=== PATIENT | male | born 1955 | race Caucasian/White ===

== ENCOUNTER 2018-12-01 09:37 | Outpatient (CLI) | payer MEDICARE ==
--- NOTE | 2018-12-01 11:29 | ULT ---
BILATERAL CAROTID DUPLEX ULTRASOUND: DATE: 12/01/18 HISTORY: Bilateral carotid stenosis. TECHNIQUE: Masterson scale ultrasound with color flow and spectral Doppler imaging of the extracranial carotid artery systems performed bilaterally. FINDINGS: There is plaque formation on either side. The peak systolic velocity in the right ICA measures 89 cm/second with an end-diastolic velocity of 2 3 cm/second and a systolic ratio of 0.88. The peak systolic velocity in the left ICA measures 91 cm/second with an end-diastolic velocity of 27 cm/second and a systolic ratio of 0.79. Flow in both vertebral arteries remains antegrade. IMPRESSION: No evidence of hemodynamically significant stenosis. POS: OFF
== END 2018-12-01 09:38 | disposition home or self-care (01) ==
LOC: BICULT 09:37
PROVIDERS: ATTEND Family Medicine
DX: I65.23 Occlusion and stenosis of bilateral carotid arteries (principal)
CPT/HCPCS: 93880

== ENCOUNTER 2019-01-30 12:07 | Outpatient (CLI) | payer MEDICARE ==
[~2019-01-30 12:07] MED LIST: ISOVUE-370 76%-LOCM 1 ML ONE
--- NOTE | 2019-01-30 14:05 | CT ---
CT ANGIOGRAM NECK WITH CONTRAST: DATE: 01/30/2019 HISTORY: 63-year-old male with carotid atherosclerosis and stenosis TECHNIQUE: After IV contrast injection, arterial bolus chasing technique scan performed from AP window to sella turcica Coronal and sagittal 3-D MIP reconstructions. FINDINGS: Borderline origin of left common carotid artery from the innominate. Innominate: Caliber within normal limits Right subclavian: No stenosis. Left subclavian: No stenosis Right common carotid: No significant stenosis Left common carotid: No significant stenosis Right internal carotid: Multifocal calcified plaque at proximal ICA, including origin and carotid bul b up to a distance of 1.5 cm distal to the carotid bulb. Greatest degree of stenosis is estimated to be approximately 25%. Small focal plaque calcified in its cervical portion of R ICA which does not cause significant stenosis. Left internal carotid: Mild or calcified plaque at proximal left internal carotid, causing minimal st enosis. Bilateral vertebral: Codominant. No significant stenosis. Carotid siphons: Mild stenosis bilaterally due to calcified plaque. IMPRESSION: 1) atherosclerosis of bilateral proximal internal carotid arteries. 2) no evidence of hemodynamically significant stenosis.
== END 2019-01-30 12:08 | disposition home or self-care (01) ==
LOC: BICCT 12:07
PROVIDERS: ATTEND Family Medicine
DX: I65.23 Occlusion and stenosis of bilateral carotid arteries (principal)
CPT/HCPCS: 70498; 82565; Q9966

== ENCOUNTER 2020-11-29 12:57 | Inpatient (IN) | payer MEDICARE ==
[2020-11-29] MEDS ORDERED: Calcium Chloride 1 GM/10 ML Abboject SYRINGE ONE (13:12)
[2020-11-29] MEDS ORDERED: Calcium Gluc 4.6 MEQ/10 ML (100 MG/ML) ONE (13:14)
[2020-11-29 13:27] LABS: #Basophils 0.1 thou/uL (0.0-0.2); #Eosinphils 0.1 thou/uL (0.0-0.7); #Lymphocytes 2.3 thou/uL (1.20-3.40); #Monocytes 0.9 thou/uL (0.11-0.59); #Neutrophils 11.5 thou/uL (1.40-6.50); %Basophils 0.6 % (0.0-1.0); %Lymphocytes 15.3 % (21.0-51.0); %Monocytes 6.3 % (0.0-10.0); %Neutrophils 76.9 % (42.0-75.0); Hemoglobin 13.6 g/dL (14.0-18.0); Mean Corpuscular Hemoglobin 26.9 pg (27.0-31.0); Mean Corpuscular Volume 84.3 fL (78.0-98.0); Mean Platelet Volume 8.5 fL (7.4-10.4); Platelet Count 163 thou/uL (130-400); RBC Distribution Width 13.3 % (11.5-14.5); Red Blood Cell (RBC) Count 5.06 mill/uL (4.70-6.10); White Blood Cell (WBC) Count 14.9 thou/uL (4.8-10.8)
[2020-11-29 13:34] LABS: INR-International Normal Ratio 1.3; PTT 30.4 sec (22.9-36.1); Prothrombin Time 16.3 sec (12.0-14.7)
[2020-11-29] MEDS ORDERED: VANCOMYCIN 2 GRAM/400 ML BAG 2 GM in Premix Bag 1 BAG IVPB SCH (13:45)
[2020-11-29] MEDS ORDERED: Cefepime 2 GM in Sodium Chloride 0.9% 100 ML IVPB SCH (13:45)
[2020-11-29 13:51] LABS: Digoxin Less than 0.15 ng/mL (0.8-2.0)
[2020-11-29 13:55] LABS: ALT (SGPT) 23 U/L (8-55); AST (SGOT) 33 U/L (5-34); Albumin 4.5 g/dL (3.4-4.8); Alkaline Phosphatase 82 U/L (40-110); Anion Gap 23 mmol/L (10-20); BUN (Urea Nitrogen) 20 mg/dL (8.4-25.7); Bilirubin, Total 1.3 mg/dL (0.2-1.2); Calc. Creatinine Clearance 0 mL/min (70-130); Calcium 9.3 mg/dL (7.8-10.44); Carbon Dioxide 16 mmol/L (23-31); Chloride 98 mmol/L (98-107); Globulin 3.4 g/dL (2.4-3.5); Glucose 322 mg/dL (80-115); Potassium 5.6 mmol/L (3.5-5.1); Protein, Total 7.9 g/dL (5.8-8.1); Sodium 131 mmol/L (136-145)
[2020-11-29] MEDS ORDERED: Cefepime 2 GM VIAL ONE (14:02)
[2020-11-29 16:37] LABS: Bilirubin Negative (Negative); Blood, Urine Negative (Negative); Clarity Clear (Clear); Glucose, Urine (Dipstick) 150 mg/dL (Negative); Ketone, Urine Negative (Negative); Leukocyte Negative Leu/uL (Negative); Nitrite Negative (Negative); Protein, Urine (Dipstick) 20 mg/dL (Neg-Trace); Specific Gravity, Urine 1.016 (1.002-1.036); Urobilinogen Normal mg/dL (Less than 2); pH, Urine 5.5 (5.0-9.0)
[2020-11-29] MEDS ORDERED: Dexamethasone 4 mg/ml Vial ONE (17:07)
[2020-11-29 17:51] LABS: Bilirubin, Direct 0.5 mg/dL (0.1-0.3); Magnesium 1.7 mg/dL (1.6-2.6)
[2020-11-29] MEDS ORDERED: Dextrose 5% in Water 1,000 ML IV PRN (17:55)
[2020-11-29] MEDS ORDERED: Dextrose 50% Abboject 50 ML SYRINGE SLOW IVP PRN (17:55)
[2020-11-29] MEDS ORDERED: HumaLOG 300 UNITS/3 ML VIAL SC PRN ×2 (17:55)
[2020-11-29] MEDS ORDERED: Acetaminophen 325 MG TAB PO PRN (17:58)
[2020-11-29] MEDS ORDERED: Acetaminophen 650 MG Suppository PR PRN (17:58)
[2020-11-29] MEDS ORDERED: Magnesium 2 GM/50 ML 2 GM in Premix Bag 1 BAG IVPB SCH (18:45)
[2020-11-29] MEDS ORDERED: Meclizine HCl 12.5 MG TAB PO PRN (19:54)
[2020-11-29] MEDS: Famotidine/PF 20 mg/2ml Vial SLOW IVP SCH (20:21)
[2020-11-29] MEDS: Sodium Chloride 0.9% 1,000 ML IV SCH (20:22)
[2020-11-29 22:07] LABS: Hemoglobin 13.4 g/dL (14.0-18.0)
[2020-11-29 22:23] LABS: Lactic Acid 2.5 mmol/L (0.5-2.2)
[2020-11-29 22:30] LABS: Anion Gap 22 mmol/L (10-20); BUN (Urea Nitrogen) 28 mg/dL (8.4-25.7); Calc. Creatinine Clearance 0 mL/min (70-130); Calcium 9.2 mg/dL (7.8-10.44); Carbon Dioxide 12 mmol/L (23-31); Chloride 101 mmol/L (98-107); Glucose 359 mg/dL (80-115); Magnesium 2.6 mg/dL (1.6-2.6); Potassium 5.5 mmol/L (3.5-5.1); Sodium 129 mmol/L (136-145)
[2020-11-29] MEDS ORDERED: Sodium Chloride 0.9% 1,000 ML IV PRN ×4 (23:03)
[2020-11-29] MEDS ORDERED: Dextrose 5 %-0.45 % NaCl 1,000 ML IV PRN (23:03)
[2020-11-29] MEDS ORDERED: Electrolyte Replacement Protocol 1 EACH IVPB PRN (23:03)
[2020-11-29] MEDS ORDERED: NS 0.9% w/ 20 MEQ KCL 1,000 ML IV PRN ×2 (23:03)
[2020-11-30] MEDS: HUMULIN R 100 UNITS in Sodium Chloride 0.9% 100 ML IVPB SCH ×2 (00:50→08:19)
[2020-11-30 03:08] LABS: Actual Bicarbonate (HCO3a) 15.7 mEq/L (22-28); Base Excess (BEa) -7.5 mEq/L (-2.0 to +3.0); CO2 Tension 26.1 mmHg (35.0-45.0); Calcium, Ionized (arterial) 1.21 mmol/L (1.12-1.30); Carboxyhemoglobin (COHb) 0.3 gm% (0.0-3.0); Hemoglobin (Hb) 13.2 g/dL (14.0-18.0); O2 Tension (PaO2), arterial 87.6 mmHg (> 80.0); Potassium - ABG Lab 4.33 mmol/L (3.70-5.30)
[2020-11-30 03:14] LABS: ALV-art Gradient 29.505 mmHg (0-20); Puncture Site LBA
[2020-11-30] MEDS: Cefepime 2 GM in Sodium Chloride 0.9% 100 ML IVPB SCH ×2 (03:16→16:36)
[2020-11-30] MEDS: Vancomycin 1.5 GRAM/300 ML BAG 1.5 GM in Premix Bag 1 BAG IVPB SCH ×2 (03:17→14:00)
[2020-11-30] MEDS: Sodium Chloride 0.9% 1,000 ML IV SCH (03:47)
[2020-11-30 03:55] LABS: INR-International Normal Ratio 1.5; Prothrombin Time 18.7 sec (12.0-14.7)
[2020-11-30 04:07] LABS: Lactic Acid 2.8 mmol/L (0.5-2.2)
[2020-11-30 04:10] LABS: ALT (SGPT) 20 U/L (8-55); AST (SGOT) 17 U/L (5-34); Albumin 4.1 g/dL (3.4-4.8); Alkaline Phosphatase 74 U/L (40-110); Anion Gap 19 mmol/L (10-20); BUN (Urea Nitrogen) 27 mg/dL (8.4-25.7); Bilirubin, Total 0.8 mg/dL (0.2-1.2); Calc. Creatinine Clearance 66 mL/min (70-130); Carbon Dioxide 12 mmol/L (23-31); Cardiac Risk 4.3 (Less than 4.5); Chloride 104 mmol/L (98-107); Cholesterol 138 mg/dl (< 200 Desired); Globulin 3.2 g/dL (2.4-3.5); Glucose 305 mg/dL (80-115); HDL Cholesterol 32 mg/dL (>60 Neg Risk); LDL Cholesterol, Calculated 91 mg/dL; Magnesium 2.2 mg/dL (1.6-2.6); Potassium 4.6 mmol/L (3.5-5.1); Protein, Total 7.3 g/dL (5.8-8.1); Sodium 130 mmol/L (136-145); Triglycerides 73 mg/dL (Less than 150)
[2020-11-30 04:19] LABS: Anion Gap 19 mmol/L (10-20); BUN (Urea Nitrogen) 27 mg/dL (8.4-25.7); Calc. Creatinine Clearance 66 mL/min (70-130); Carbon Dioxide 12 mmol/L (23-31); Chloride 104 mmol/L (98-107); Glucose 298 mg/dL (80-115); Potassium 4.5 mmol/L (3.5-5.1); Sodium 130 mmol/L (136-145)
[2020-11-30 04:49] LABS: #Basophils 0.1 thou/uL (0.0-0.2); #Lymphocytes 1.2 thou/uL (1.20-3.40); #Monocytes 0.6 thou/uL (0.11-0.59); #Neutrophils 13.2 thou/uL (1.40-6.50); %Basophils 0.5 % (0.0-1.0); %Eosinophils 0.1 % (0.0-10.0); %Lymphocytes 8.1 % (21.0-51.0); %Monocytes 3.8 % (0.0-10.0); %Neutrophils 87.5 % (42.0-75.0); Hemoglobin 12.8 g/dL (14.0-18.0); MDiff Complete? YES; Mean Corpuscular HGB CONC 33.1 g/dL (32.0-36.0); Mean Corpuscular Hemoglobin 27.6 pg (27.0-31.0); Mean Corpuscular Volume 83.4 fL (78.0-98.0); Mean Platelet Volume 8.3 fL (7.4-10.4); Platelet Count 109 thou/uL (130-400); Platelet Morphology Comment Appears Decreased; RBC Distribution Width 13.4 % (11.5-14.5); Red Blood Cell (RBC) Count 4.64 mill/uL (4.70-6.10); White Blood Cell (WBC) Count 15.1 thou/uL (4.8-10.8)
[2020-11-30 05:22] VITALS: BMI 28.4
[2020-11-30 05:38] LABS: SARS-CoV-2 PCR by NAA Not Detected (NotDetected)
[2020-11-30] MEDS: D5 1/2 NS w/20 mEq KCL 1,000 ML IV PRN ×2 (06:23→10:31)
[2020-11-30] MEDS: Famotidine/PF 20 mg/2ml Vial SLOW IVP SCH ×2 (08:19→20:46)
[2020-11-30] MEDS: Ezetimibe 10 MG TAB PO SCH (08:19)
[2020-11-30 08:58] LABS: Anion Gap 17 mmol/L (10-20); BUN (Urea Nitrogen) 30 mg/dL (8.4-25.7); Calc. Creatinine Clearance 71 mL/min (70-130); Carbon Dioxide 13 mmol/L (23-31); Chloride 105 mmol/L (98-107); Glucose 178 mg/dL (80-115); Potassium 4.2 mmol/L (3.5-5.1); Sodium 131 mmol/L (136-145)
[2020-11-30] MEDS ORDERED: Aspirin 81 mg Enteric Coated Tablet PO SCH ×2 (10:25→11:00)
[2020-11-30] MEDS ORDERED: Dextrose 50% Abboject 50 ML SYRINGE SLOW IVP PRN (13:26)
[2020-11-30] MEDS ORDERED: Dextrose 5% in Water 1,000 ML IV PRN (13:26)
[2020-11-30] MEDS: Lactated Ringer's 1,000 ML IV SCH (13:59)
[2020-11-30] MEDS ORDERED: Insulin Glargine 25 UNITS in Pre-Filled Syringe 1 EACH SC SCH ×2 (14:00→21:00)
[2020-11-30] MEDS: Warfarin Sodium 7.5 MG TAB PO SCH (16:36)
[2020-11-30] MEDS: Atorvastatin Calcium 40 MG TAB PO SCH (20:45)
[2020-11-30] MEDS: Montelukast Sodium 10 mg Tablet PO SCH (20:45)
[2020-11-30] MEDS: HumaLOG 300 UNITS/3 ML VIAL SC PRN (20:51)
[2020-12-01 01:26] LABS: Hemoglobin 11.8 g/dL (14.0-18.0); Platelet Count 84 thou/uL (130-400)
[2020-12-01 01:31] LABS: INR-International Normal Ratio 2.1
[2020-12-01 01:43] LABS: Vancomycin, Trough 22.7 ug/mL
[2020-12-01] MEDS: VANCOMYCIN 1.25 GM/250 ML BAG 1.25 GM in Premix Bag 1 BAG IVPB SCH ×2 (02:21→17:46)
[2020-12-01 02:41] LABS: Anion Gap 17 mmol/L (10-20); BUN (Urea Nitrogen) 30 mg/dL (8.4-25.7); Calc. Creatinine Clearance 85 mL/min (70-130); Calcium 8.6 mg/dL (7.8-10.44); Carbon Dioxide 14 mmol/L (23-31); Chloride 105 mmol/L (98-107); Glucose 224 mg/dL (80-115); Potassium 4.7 mmol/L (3.5-5.1); Sodium 131 mmol/L (136-145)
[2020-12-01] MEDS: Cefepime 2 GM in Sodium Chloride 0.9% 100 ML IVPB SCH ×2 (05:45→15:50)
[2020-12-01] MEDS: HumaLOG 300 UNITS/3 ML VIAL SC PRN ×3 (05:46→21:33)
[2020-12-01 08:13] LABS: Hemoglobin 12.4 g/dL (14.0-18.0); Mean Corpuscular HGB CONC 32.6 g/dL (32.0-36.0); Mean Corpuscular Hemoglobin 27.6 pg (27.0-31.0); Mean Corpuscular Volume 84.6 fL (78.0-98.0); Mean Platelet Volume 8.8 fL (7.4-10.4); Platelet Count 80 thou/uL (130-400); RBC Distribution Width 13.6 % (11.5-14.5); Red Blood Cell (RBC) Count 4.47 mill/uL (4.70-6.10)
[2020-12-01] MEDS: Aspirin 81 mg Enteric Coated Tablet PO SCH (08:30)
[2020-12-01] MEDS: Ezetimibe 10 MG TAB PO SCH (08:30)
[2020-12-01] MEDS: Famotidine/PF 20 mg/2ml Vial SLOW IVP SCH ×2 (08:31→21:33)
[2020-12-01 08:43] LABS: #Eosinphils 0.2 thou/uL (0.0-0.7); #Lymphocytes 1.7 thou/uL (1.20-3.40); #Monocytes 1.1 thou/uL (0.11-0.59); %Basophils 0.1 % (0.0-1.0); %Eosinophils 1.1 % (0.0-10.0); %Lymphocytes 10.3 % (21.0-51.0); %Monocytes 6.9 % (0.0-10.0); %Neutrophils 81.5 % (42.0-75.0); Burr Cells SLIGHT = 2-5 cells (100X) (0-1/hpf); Elliptocytes SLIGHT = 2-5 cells (100X) (0-1/hpf); MDiff Complete? YES; Platelet Morphology Comment Appears Decreased; Poikilocytosis MODERATE=16-30 cells (100X) (0-5/hpf); Schistocytes SLIGHT = 2-5 cells (100X) (0-1/hpf)
[2020-12-01] MEDS ORDERED: Insulin Glargine 25 UNITS in Pre-Filled Syringe 1 EACH SC SCH (09:00)
[2020-12-01] MEDS: Lactated Ringer's 1,000 ML IV SCH ×2 (10:05→17:48)
[2020-12-01] MEDS: Warfarin Sodium 7.5 MG TAB PO SCH (17:48)
[2020-12-01] MEDS: HumaLOG 300 UNITS/3 ML VIAL SC SCH (17:54)
[2020-12-01] MEDS ORDERED: Non-Formulary Item 1 EACH (Insulin Glargine,Hum.Rec.Anlog [Basaglar Kwikpen U-100] 100 UN SQ SCH (21:00)
[2020-12-01] MEDS: Atorvastatin Calcium 40 MG TAB PO SCH (21:32)
[2020-12-01] MEDS: Montelukast Sodium 10 mg Tablet PO SCH (21:33)
[2020-12-01] MEDS: Insulin Glargine 50 UNITS in Pre-Filled Syringe 1 EACH SC SCH (21:34)
[2020-12-02] MEDS: Cefepime 2 GM in Sodium Chloride 0.9% 100 ML IVPB SCH ×2 (02:19→13:57)
[2020-12-02] MEDS: VANCOMYCIN 1.25 GM/250 ML BAG 1.25 GM in Premix Bag 1 BAG IVPB SCH ×2 (03:10→15:11)
[2020-12-02 06:50] LABS: INR-International Normal Ratio 2.1
[2020-12-02 07:03] LABS: Anion Gap 12 mmol/L (10-20); BUN (Urea Nitrogen) 22 mg/dL (8.4-25.7); Calc. Creatinine Clearance 120 mL/min (70-130); Calcium 8.2 mg/dL (7.8-10.44); Carbon Dioxide 20 mmol/L (23-31); Chloride 108 mmol/L (98-107); Glucose 115 mg/dL (80-115); Potassium 4.1 mmol/L (3.5-5.1); Sodium 136 mmol/L (136-145)
[2020-12-02] MEDS: HumaLOG 300 UNITS/3 ML VIAL SC SCH ×2 (09:21→16:19)
[2020-12-02] MEDS: Aspirin 81 mg Enteric Coated Tablet PO SCH (09:22)
[2020-12-02] MEDS: Lactated Ringer's 1,000 ML IV SCH ×2 (09:22→20:10)
[2020-12-02] MEDS: Ezetimibe 10 MG TAB PO SCH (09:22)
[2020-12-02] MEDS: Insulin Glargine 50 UNITS in Pre-Filled Syringe 1 EACH SC SCH ×2 (09:23→21:09)
[2020-12-02] MEDS: Famotidine/PF 20 mg/2ml Vial SLOW IVP SCH ×2 (09:32→20:10)
[2020-12-02 14:09] LABS: Vancomycin, Trough 21.9 ug/mL
[2020-12-02] MEDS ORDERED: Vancomycin 1 GM in Premix Bag 1 BAG IVPB SCH (15:00)
[2020-12-02] MEDS: Vancomycin 1 GM in Premix Bag 1 BAG IVPB SCH (16:21)
[2020-12-02] MEDS: Warfarin Sodium 7.5 MG TAB PO SCH (16:22)
[2020-12-02] MEDS: Montelukast Sodium 10 mg Tablet PO SCH (20:10)
[2020-12-02] MEDS: Atorvastatin Calcium 40 MG TAB PO SCH (20:10)
[2020-12-03] MEDS: Cefepime 2 GM in Sodium Chloride 0.9% 100 ML IVPB SCH ×2 (02:43→14:04)
[2020-12-03] MEDS: Vancomycin 1 GM in Premix Bag 1 BAG IVPB SCH ×2 (03:50→16:42)
[2020-12-03] MEDS: Senokot S 8.6-50 MG TAB PO PRN ×2 (03:51→20:14)
[2020-12-03 07:00] LABS: #Basophils 0.1 thou/uL (0.0-0.2); #Eosinphils 0.3 thou/uL (0.0-0.7); #Lymphocytes 1.6 thou/uL (1.20-3.40); #Monocytes 0.6 thou/uL (0.11-0.59); #Neutrophils 6.6 thou/uL (1.40-6.50); %Basophils 0.6 % (0.0-1.0); %Eosinophils 3.3 % (0.0-10.0); %Lymphocytes 17.1 % (21.0-51.0); Hemoglobin 11.4 g/dL (14.0-18.0); Mean Corpuscular HGB CONC 32.4 g/dL (32.0-36.0); Mean Corpuscular Hemoglobin 26.9 pg (27.0-31.0); Mean Corpuscular Volume 83.1 fL (78.0-98.0); Mean Platelet Volume 9.3 fL (7.4-10.4); Platelet Count 95 thou/uL (130-400); RBC Distribution Width 13.6 % (11.5-14.5); Red Blood Cell (RBC) Count 4.24 mill/uL (4.70-6.10); White Blood Cell (WBC) Count 9.2 thou/uL (4.8-10.8)
[2020-12-03 07:29] LABS: ALT (SGPT) 27 U/L (8-55); AST (SGOT) 31 U/L (5-34); Albumin 3.6 g/dL (3.4-4.8); Alkaline Phosphatase 68 U/L (40-110); Anion Gap 15 mmol/L (10-20); BUN (Urea Nitrogen) 15 mg/dL (8.4-25.7); Calc. Creatinine Clearance 112 mL/min (70-130); Calcium 8.4 mg/dL (7.8-10.44); Carbon Dioxide 20 mmol/L (23-31); Chloride 107 mmol/L (98-107); Globulin 2.7 g/dL (2.4-3.5); Glucose 93 mg/dL (80-115); Magnesium 1.8 mg/dL (1.6-2.6); Protein, Total 6.3 g/dL (5.8-8.1); Sodium 138 mmol/L (136-145)
[2020-12-03] MEDS ORDERED: Magnesium 2 GM/50 ML 2 GM in Premix Bag 1 BAG IVPB SCH (08:30)
[2020-12-03] MEDS: HumaLOG 300 UNITS/3 ML VIAL SC SCH ×2 (09:40→16:44)
[2020-12-03] MEDS: Aspirin 81 mg Enteric Coated Tablet PO SCH (09:42)
[2020-12-03] MEDS: Ezetimibe 10 MG TAB PO SCH (09:42)
[2020-12-03] MEDS: Famotidine/PF 20 mg/2ml Vial SLOW IVP SCH ×2 (09:42→20:13)
[2020-12-03] MEDS: Insulin Glargine 50 UNITS in Pre-Filled Syringe 1 EACH SC SCH (09:42)
[2020-12-03 11:05] LABS: ANA Symphony (Qualitative) Negative (Negative); ANA Symphony (Quantitative) 0.2 Ratio (< 0.7 Negative); CCP IgG Antibody 0.7 EliAU/mL (<7 Negative); EliA RAS New Method **** NEW METHOD ****; Rheumatoid Factor IgA Antibody 4.8 IU/mL (<14 Negative); Rheumatoid Factor IgM Antibody Less than 0.5 IU/mL (<3.5 Negative); dsDNA IgG Antibody 0.7 IU/mL (<10 Negative)
[2020-12-03 11:55] LABS: Hemoglobin A1c 8.2 % (4.0-6.0)
[2020-12-03 13:27] LABS: INR-International Normal Ratio 1.9; Prothrombin Time 22.6 sec (12.0-14.7)
[2020-12-03] MEDS: Lactated Ringer's 1,000 ML IV SCH ×2 (13:57→14:06)
[2020-12-03] MEDS: Warfarin Sodium 7.5 MG TAB PO SCH (16:42)
[2020-12-03] MEDS: Montelukast Sodium 10 mg Tablet PO SCH (20:13)
[2020-12-03] MEDS: Atorvastatin Calcium 40 MG TAB PO SCH (20:13)
[2020-12-03] MEDS: Lantus 1000 UNITS/10 ML VIAL SC SCH (21:39)
[2020-12-04 03:27] LABS: #Eosinphils 0.4 thou/uL (0.0-0.7); #Lymphocytes 1.6 thou/uL (1.20-3.40); #Monocytes 0.8 thou/uL (0.11-0.59); #Neutrophils 6.4 thou/uL (1.40-6.50); %Basophils 0.4 % (0.0-1.0); %Eosinophils 4.4 % (0.0-10.0); %Monocytes 8.9 % (0.0-10.0); %Neutrophils 69.4 % (42.0-75.0); Mean Corpuscular HGB CONC 33.2 g/dL (32.0-36.0); Mean Corpuscular Hemoglobin 27.5 pg (27.0-31.0); Mean Corpuscular Volume 82.7 fL (78.0-98.0); Mean Platelet Volume 9.1 fL (7.4-10.4); Platelet Count 109 thou/uL (130-400); RBC Distribution Width 13.4 % (11.5-14.5); Red Blood Cell (RBC) Count 3.99 mill/uL (4.70-6.10); White Blood Cell (WBC) Count 9.3 thou/uL (4.8-10.8)
[2020-12-04] MEDS: Cefepime 2 GM in Sodium Chloride 0.9% 100 ML IVPB SCH ×2 (03:27→14:35)
[2020-12-04 03:28] LABS: INR-International Normal Ratio 1.9
[2020-12-04 03:32] LABS: Vancomycin, Trough 15.9 ug/mL
[2020-12-04 03:35] LABS: ALT (SGPT) 28 U/L (8-55); AST (SGOT) 28 U/L (5-34); Albumin 3.4 g/dL (3.4-4.8); Alkaline Phosphatase 66 U/L (40-110); Anion Gap 12 mmol/L (10-20); BUN (Urea Nitrogen) 13 mg/dL (8.4-25.7); Bilirubin, Total 0.9 mg/dL (0.2-1.2); Calc. Creatinine Clearance 123 mL/min (70-130); Calcium 8.4 mg/dL (7.8-10.44); Carbon Dioxide 23 mmol/L (23-31); Chloride 106 mmol/L (98-107); Globulin 2.5 g/dL (2.4-3.5); Glucose 69 mg/dL (80-115); Magnesium 1.9 mg/dL (1.6-2.6); Potassium 3.9 mmol/L (3.5-5.1); Protein, Total 5.9 g/dL (5.8-8.1); Sodium 137 mmol/L (136-145)
[2020-12-04] MEDS: Lactated Ringer's 1,000 ML IV SCH ×2 (04:40→17:23)
[2020-12-04] MEDS: Vancomycin 1 GM in Premix Bag 1 BAG IVPB SCH ×2 (04:40→14:35)
[2020-12-04] MEDS ORDERED: Magnesium 2 GM/50 ML 2 GM in Premix Bag 1 BAG IVPB SCH (06:15)
[2020-12-04] MEDS: HumaLOG 300 UNITS/3 ML VIAL SC SCH ×2 (08:11→17:16)
[2020-12-04] MEDS: Ezetimibe 10 MG TAB PO SCH (08:12)
[2020-12-04] MEDS: Famotidine/PF 20 mg/2ml Vial SLOW IVP SCH ×2 (08:12→21:09)
[2020-12-04] MEDS: Lantus 1000 UNITS/10 ML VIAL SC SCH ×2 (08:12→21:08)
[2020-12-04] MEDS: Aspirin 81 mg Enteric Coated Tablet PO SCH (08:12)
[2020-12-04] MEDS: HumaLOG 300 UNITS/3 ML VIAL SC PRN ×2 (12:00→17:16)
[2020-12-04] MEDS: Warfarin Sodium 7.5 MG TAB PO SCH (17:15)
[2020-12-04] MEDS: Montelukast Sodium 10 mg Tablet PO SCH (21:09)
[2020-12-04] MEDS: Atorvastatin Calcium 40 MG TAB PO SCH (21:09)
[2020-12-05] MEDS: Lactated Ringer's 1,000 ML IV SCH (02:42)
[2020-12-05 07:02] LABS: Hemoglobin 11.2 g/dL (14.0-18.0); Platelet Count 141 thou/uL (130-400)
[2020-12-05 07:04] LABS: INR-International Normal Ratio 1.9; Prothrombin Time 22.6 sec (12.0-14.7)
[2020-12-05 07:19] LABS: Anion Gap 10 mmol/L (10-20); BUN (Urea Nitrogen) 12 mg/dL (8.4-25.7); Calc. Creatinine Clearance 119 mL/min (70-130); Calcium 8.5 mg/dL (7.8-10.44); Carbon Dioxide 29 mmol/L (23-31); Chloride 104 mmol/L (98-107); Glucose 113 mg/dL (80-115); Potassium 4.5 mmol/L (3.5-5.1); Sodium 138 mmol/L (136-145)
[2020-12-05] MEDS: HumaLOG 300 UNITS/3 ML VIAL SC SCH ×2 (07:46→17:26)
[2020-12-05] MEDS: Lantus 1000 UNITS/10 ML VIAL SC SCH ×2 (09:17→20:46)
[2020-12-05] MEDS: Famotidine/PF 20 mg/2ml Vial SLOW IVP SCH ×2 (09:17→20:46)
[2020-12-05] MEDS: Ezetimibe 10 MG TAB PO SCH (09:17)
[2020-12-05] MEDS: Aspirin 81 mg Enteric Coated Tablet PO SCH (09:17)
[2020-12-05] MEDS: HumaLOG 300 UNITS/3 ML VIAL SC PRN ×2 (12:28→17:26)
[2020-12-05] MEDS: Warfarin Sodium 7.5 MG TAB PO SCH (17:26)
[2020-12-05] MEDS: Atorvastatin Calcium 40 MG TAB PO SCH (20:44)
[2020-12-05] MEDS: Montelukast Sodium 10 mg Tablet PO SCH (20:45)
[2020-12-06] MEDS: Lactated Ringer's 1,000 ML IV SCH ×2 (01:10→13:16)
[2020-12-06 05:58] LABS: INR-International Normal Ratio 1.9; Prothrombin Time 22.1 sec (12.0-14.7)
[2020-12-06 06:10] LABS: Anion Gap 11 mmol/L (10-20); BUN (Urea Nitrogen) 15 mg/dL (8.4-25.7); Calc. Creatinine Clearance 117 mL/min (70-130); Calcium 8.6 mg/dL (7.8-10.44); Carbon Dioxide 27 mmol/L (23-31); Chloride 103 mmol/L (98-107); Glucose 77 mg/dL (80-115); Potassium 4.1 mmol/L (3.5-5.1); Sodium 137 mmol/L (136-145)
[2020-12-06] MEDS: Famotidine/PF 20 mg/2ml Vial SLOW IVP SCH ×2 (08:15→22:00)
[2020-12-06] MEDS: Aspirin 81 mg Enteric Coated Tablet PO SCH (08:15)
[2020-12-06] MEDS: Ezetimibe 10 MG TAB PO SCH (08:15)
[2020-12-06] MEDS: Lantus 1000 UNITS/10 ML VIAL SC SCH ×2 (08:25→22:02)
[2020-12-06] MEDS: HumaLOG 300 UNITS/3 ML VIAL SC SCH ×2 (08:28→18:39)
[2020-12-06] MEDS: HumaLOG 300 UNITS/3 ML VIAL SC PRN ×2 (13:03→17:24)
[2020-12-06] MEDS: Warfarin Sodium 7.5 MG TAB PO SCH (17:18)
[2020-12-06] MEDS: Montelukast Sodium 10 mg Tablet PO SCH (22:00)
[2020-12-06] MEDS: Atorvastatin Calcium 40 MG TAB PO SCH (22:00)
[2020-12-07 06:39] LABS: Hemoglobin 10.8 g/dL (14.0-18.0); Platelet Count 175 thou/uL (130-400)
[2020-12-07 06:44] LABS: Prothrombin Time 22.8 sec (12.0-14.7)
[2020-12-07 07:00] LABS: Anion Gap 14 mmol/L (10-20); BUN (Urea Nitrogen) 14 mg/dL (8.4-25.7); Calc. Creatinine Clearance 112 mL/min (70-130); Calcium 8.2 mg/dL (7.8-10.44); Carbon Dioxide 24 mmol/L (23-31); Chloride 101 mmol/L (98-107); Glucose 166 mg/dL (80-115); Sodium 135 mmol/L (136-145)
[2020-12-07] MEDS: HumaLOG 300 UNITS/3 ML VIAL SC SCH (08:03)
[2020-12-07] MEDS: Ezetimibe 10 MG TAB PO SCH (08:04)
[2020-12-07] MEDS: Aspirin 81 mg Enteric Coated Tablet PO SCH (08:04)
[2020-12-07] MEDS: Famotidine/PF 20 mg/2ml Vial SLOW IVP SCH (08:04)
[2020-12-07] MEDS: Lantus 1000 UNITS/10 ML VIAL SC SCH (08:05)
[2020-12-07] MEDS: HumaLOG 300 UNITS/3 ML VIAL SC PRN (11:29)
[2020-12-07 14:12] VITALS: BP 152/92; TEMP 98.8
== END 2020-12-07 15:11 | disposition home or self-care (01) | DRG 638 ==
LOC: ERS 12:57 → 2NO 17:30 → IMCU/EMU 11-30 00:14 → T4-B 12-01 14:22
PROVIDERS: ADMIT Family Medicine; ATTEND Family Medicine
DX: E11.10 Type 2 diabetes mellitus with ketoacidosis without coma (principal); N17.9 Acute kidney failure, unspecified; H81.10 Benign paroxysmal vertigo, unspecified ear; E86.9 Volume depletion, unspecified; E87.5 Hyperkalemia; G89.29 Other chronic pain; M54.9 Dorsalgia, unspecified; Z20.822 Contact with and (suspected) exposure to COVID-19; E86.0 Dehydration; N40.0 Benign prostatic hyperplasia without lower urinary tract symptoms; M25.552 Pain in left hip; M25.551 Pain in right hip; I25.2 Old myocardial infarction; Z86.73 Personal history of transient ischemic attack (TIA), and cerebral infarction without residual deficits; Z86.711 Personal history of pulmonary embolism; Z86.718 Personal history of other venous thrombosis and embolism; Z79.01 Long term (current) use of anticoagulants; Z95.828 Presence of other vascular implants and grafts; Z88.0 Allergy status to penicillin; Z88.8 Allergy status to other drugs, medicaments and biological substances; Z91.040 Latex allergy status; Z79.899 Other long term (current) drug therapy; Z79.84 Long term (current) use of oral hypoglycemic drugs
CPT/HCPCS: 36415; 36416; 36600; 51701; 70450; 70496; 70498; 70551; 71045; 71275; 72072; 72100; 72148; 72170; 74177; 80048; 80053; 80061; 80162; 80202; 81003; 82010; 82248; 82550; 82805; 83036; 83520; 83605; 83690; 83735; 83880; 84145; 84443; 84484; 85014; 85018; 85025; 85049; 85610; 85652; 85730; 86038; 86200; 86225; 87040; 87635; 93005; 93306; 96365; 96366; 96375; J0692; J1100; J1815; J2001; J3370; J3475; J3480; J3490; S0028; U0003; U0005

== ENCOUNTER 2023-04-14 16:03 | Emergency (ER) | payer MEDICARE ==
[2023-04-14] MEDS ORDERED: Dicyclomine 20 MG/2 ML VIAL ONE (18:22)
[2023-04-14 18:35] LABS: #Basophils 0.1 thou/uL (0.0-0.2); #Eosinphils 0.1 thou/uL (0.0-0.7); #Monocytes 0.7 thou/uL (0.11-0.59); %Basophils 0.4 % (0.0-1.0); %Eosinophils 0.9 % (0.0-10.0); %Lymphocytes 11.8 % (21.0-51.0); %Monocytes 5.8 % (0.0-10.0); %Neutrophils 80.7 % (42.0-75.0); Hematocrit 38.3 % (42.0-52.0); Hemoglobin 12.5 g/dL (14.0-18.0); Mean Corpuscular HGB CONC 32.6 g/dL (32.0-36.0); Mean Corpuscular Hemoglobin 27.2 pg (27.0-31.0); Mean Corpuscular Volume 83.4 fl (78.0-98.0); Platelet Count 257 10x3/uL (130-400); RBC Distribution Width 14.3 % (11.5-14.5); Red Blood Cell (RBC) Count 4.59 mill/uL (4.70-6.10); White Blood Cell (WBC) Count 11.1 10x3/uL (4.8-10.8)
[2023-04-14 18:57] LABS: ALT (SGPT) 11 U/L (8-55); AST (SGOT) 20 U/L (5-34); Alkaline Phosphatase 54 U/L (40-110); Anion Gap 14 mmol/L (10-20); BUN (Urea Nitrogen) 24 mg/dL (8.4-25.7); Bilirubin, Total 0.5 mg/dL (0.2-1.2); Calc. Creatinine Clearance 0 mL/min (70-130); Calcium 9.4 mg/dL (7.8-10.44); Carbon Dioxide 22 mmol/L (23-31); Chloride 100 mmol/L (98-107); Estimated GFR 76; Globulin 2.6 g/dL (2.4-3.5); Glucose 58 mg/dL (80-115); Lipase 11 U/L (8-78); Potassium 3.6 mmol/L (3.5-5.1); Protein, Total 6.6 g/dL (5.8-8.1); Sodium 132 mmol/L (136-145)
[2023-04-14] MEDS ORDERED: Glycerin Adult Supp. (12 ct jar) RC SCH (19:00)
[2023-04-14] MEDS ORDERED: Glycerin Adult Supp. (24 ct jar) RC SCH (19:00)
[2023-04-14] MEDS ORDERED: Midazolam HCl 2 mg/2 ml Vial ONE (19:22)
[2023-04-14 19:42] LABS: Bacteria/HPF None Seen HPF (None Seen); Bilirubin Negative (Negative); Blood, Urine Negative (Negative); CAUTI Indications for Culture Pelvic or flank pain; Clarity Clear (Clear); Glucose, Urine (Dipstick) Normal (Negative); Ketone, Urine Negative (Negative); Leukocyte Negative Leu/uL (Negative); Nitrite Negative (Negative); Protein, Urine (Dipstick) Negative (Neg-Trace); RBC/HPF 0-3 HPF (0-3); Specific Gravity, Urine 1.011 (1.002-1.036); Squamous Epithelial None Seen HPF (0-3); Urobilinogen Normal mg/dL (Less than 2); WBC/HPF 0-3 HPF (0-3)
[2023-04-14 19:46] LABS: Urine Culture Reflex No No
== END 2023-04-14 21:05 | disposition home or self-care (01) ==
LOC: ERS 16:03
DX: K59.00 Constipation, unspecified (principal); R33.9 Retention of urine, unspecified; E11.9 Type 2 diabetes mellitus without complications; E78.5 Hyperlipidemia, unspecified; Z79.4 Long term (current) use of insulin
CPT/HCPCS: 36415; 36416; 51702; 74177; 80053; 81001; 83690; 85025; 96361; 96372; 96374; J2250

== ENCOUNTER 2023-08-31 11:54 | Inpatient (IN) | payer MEDICARE ==
[2023-08-31 13:14] LABS: #Basophils 0.1 thou/uL (0.0-0.2); #Eosinphils 0.1 thou/uL (0.0-0.7); #Monocytes 0.8 thou/uL (0.11-0.59); #Neutrophils 6.8 thou/uL (1.40-6.50); %Basophils 0.5 % (0.0-1.0); %Eosinophils 1.3 % (0.0-10.0); %Monocytes 8.5 % (0.0-10.0); %Neutrophils 72.3 % (42.0-75.0); Hematocrit 36.9 % (42.0-52.0); Hemoglobin 12.4 g/dL (14.0-18.0); Mean Corpuscular HGB CONC 33.6 g/dL (32.0-36.0); Mean Corpuscular Hemoglobin 27.4 pg (27.0-31.0); Mean Corpuscular Volume 81.6 fl (78.0-98.0); Mean Platelet Volume 10.1 fL (7.4-10.4); Platelet Count 264 10x3/uL (130-400); RBC Distribution Width 14.7 % (11.5-14.5); Red Blood Cell (RBC) Count 4.52 mill/uL (4.70-6.10); White Blood Cell (WBC) Count 9.4 10x3/uL (4.8-10.8)
[2023-08-31] MEDS ORDERED: Morphine 4 MG/ML VIAL ONE (13:25)
[2023-08-31] MEDS ORDERED: Acetaminophen 500 MG TAB ONE (13:25)
[2023-08-31 13:32] LABS: ALT (SGPT) Less than 7 U/L (8-55); AST (SGOT) 31 U/L (5-34); Albumin 4.2 g/dL (3.4-4.8); Alkaline Phosphatase 65 U/L (40-110); Anion Gap 17 mmol/L (10-20); BUN (Urea Nitrogen) 28 mg/dL (8.4-25.7); Bilirubin, Total 0.8 mg/dL (0.2-1.2); Calc. Creatinine Clearance 0 mL/min (70-130); Calcium 9.8 mg/dL (7.8-10.44); Carbon Dioxide 20 mmol/L (23-31); Chloride 103 mmol/L (98-107); Estimated GFR 68; Globulin 3.1 g/dL (2.4-3.5); Potassium 3.7 mmol/L (3.5-5.1); Protein, Total 7.3 g/dL (5.8-8.1); Sodium 136 mmol/L (136-145)
[2023-08-31 13:36] LABS: Glucose 49 mg/dL (80-115)
[2023-08-31 16:51] LABS: Bacteria/HPF None Seen HPF (None Seen); Bilirubin Negative (Negative); Blood, Urine Negative (Negative); CAUTI Indications for Culture Pelvic or flank pain; Clarity Clear (Clear); Glucose, Urine (Dipstick) Normal (Negative); Ketone, Urine Negative (Negative); Leukocyte Negative Leu/uL (Negative); Nitrite Negative (Negative); Protein, Urine (Dipstick) Negative (Neg-Trace); RBC/HPF 0-3 HPF (0-3); Specific Gravity, Urine 1.007 (1.002-1.036); Squamous Epithelial None Seen HPF (0-3); Urobilinogen Normal mg/dL (Less than 2); WBC/HPF 0-3 HPF (0-3); pH, Urine 6.5 (5.0-9.0)
[2023-08-31] MEDS ORDERED: Ketorolac Tromethamine 30 MG/ML VIAL ONE (16:51)
[2023-08-31 16:55] LABS: Urine Culture Reflex No No
[2023-08-31] MEDS ORDERED: Methocarbamol 500 MG TAB PO SCH (17:00)
[2023-08-31] MEDS ORDERED: Dextrose 5% in Water 1,000 ML IV PRN (18:39)
[2023-08-31] MEDS ORDERED: Ondansetron ODT 4 MG TAB PO PRN (18:39)
[2023-08-31] MEDS ORDERED: Dextrose 50% Abboject 50 ML SYRINGE SLOW IVP PRN (18:39)
[2023-08-31] MEDS ORDERED: Acetaminophen 650 MG Suppository PR PRN (18:39)
[2023-08-31] MEDS ORDERED: Ondansetron PF 4 MG/2 ML Vial IVP PRN (18:39)
[2023-08-31] MEDS ORDERED: HumaLOG 300 UNITS/3 ML VIAL SC PRN ×2 (18:39)
[2023-08-31] MEDS ORDERED: Glucagon 1 MG/ML KIT IM PRN (18:39)
[2023-08-31] MEDS ORDERED: Morphine 2 MG/ML VIAL SLOW IVP PRN (18:42)
[2023-08-31] MEDS ORDERED: Electrolyte Replacement Protocol 1 EACH FS SCH (18:45)
[2023-08-31 19:40] VITALS: BMI 24.3
[2023-08-31] MEDS: Sodium Chloride 0.9% 1,000 ML IV SCH (21:24)
[2023-09-01 06:07] LABS: #Eosinphils 0.2 thou/uL (0.0-0.7); #Monocytes 0.7 thou/uL (0.11-0.59); #Neutrophils 5.6 thou/uL (1.40-6.50); %Basophils 0.5 % (0.0-1.0); %Eosinophils 2.5 % (0.0-10.0); %Lymphocytes 16.8 % (21.0-51.0); %Monocytes 8.9 % (0.0-10.0); Hematocrit 35.2 % (42.0-52.0); Hemoglobin 11.4 g/dL (14.0-18.0); Mean Corpuscular HGB CONC 32.4 g/dL (32.0-36.0); Mean Corpuscular Hemoglobin 26.7 pg (27.0-31.0); Mean Corpuscular Volume 82.4 fl (78.0-98.0); Platelet Count 244 10x3/uL (130-400); RBC Distribution Width 14.8 % (11.5-14.5); Red Blood Cell (RBC) Count 4.27 mill/uL (4.70-6.10); White Blood Cell (WBC) Count 7.9 10x3/uL (4.8-10.8)
[2023-09-01] MEDS: HYDROcodone/Acetaminophen 5/325 mg Tablet PO PRN ×4 (06:12→23:42)
[2023-09-01 06:36] LABS: Anion Gap 17 mmol/L (10-20); BUN (Urea Nitrogen) 20 mg/dL (8.4-25.7); Calc. Creatinine Clearance 83 mL/min (70-130); Calcium 8.7 mg/dL (7.8-10.44); Carbon Dioxide 19 mmol/L (23-31); Chloride 106 mmol/L (98-107); Estimated GFR 85; Glucose 60 mg/dL (80-115); Potassium 3.8 mmol/L (3.5-5.1); Sodium 138 mmol/L (136-145)
[2023-09-01] MEDS ORDERED: Amantadine HCl 100 mg Capsule FS SCH (09:00)
[2023-09-01] MEDS ORDERED: UBIDECARENONE 50 MG PO SCH (09:00)
[2023-09-01] MEDS ORDERED: Non-Formulary Item 1 EACH (Amantadine Hcl [Amantadine] 100 MG Tablet) PO SCH (09:00)
[2023-09-01] MEDS ORDERED: Non-Formulary Item 1 EACH (Rivaroxaban [Xarelto] 20 MG Tablet) PO SCH (09:00)
[2023-09-01] MEDS ORDERED: Non-Formulary Item 1 EACH (Atorvastatin Calcium [Lipitor] 80 MG Tablet) PO SCH (09:00)
[2023-09-01] MEDS ORDERED: Carbidopa/Levodopa 25-100 mg Tablet PO SCH (09:00)
[2023-09-01] MEDS ORDERED: Cholecalciferol 1,000 UNITS (25 MCG) TAB PO SCH (09:00)
[2023-09-01] MEDS ORDERED: Non-Formulary Item 1 EACH (Cyanocobalamin (Vitamin B-12) [Vitamin B-12] 1,000 MCG Capsule PO SCH (09:00)
[2023-09-01] MEDS ORDERED: Amantadine HCl 100 mg Capsule PO SCH (09:30)
[2023-09-01] MEDS: Ascorbic Acid 500 mg Chewable Tablet PO SCH (09:38)
[2023-09-01] MEDS: Gabapentin 300 MG CAP PO SCH ×3 (09:38→20:19)
[2023-09-01] MEDS: CO Q-10 CAPSULE 100 MG PO SCH (09:38)
[2023-09-01] MEDS: Cholecalciferol 1,000 UNITS (25 MCG) TAB PO SCH (09:38)
[2023-09-01] MEDS: Aspirin 81 mg Enteric Coated Tablet PO SCH (09:38)
[2023-09-01] MEDS: Rivaroxaban 10 MG TAB PO SCH (09:38)
[2023-09-01] MEDS: Carbidopa/Levodopa 25-100 mg Tablet PO SCH ×3 (09:39→20:19)
[2023-09-01] MEDS: Cyanocobalamin (Vitamin B-12) 1,000 MCG TAB PO SCH (09:39)
[2023-09-01] MEDS: Sodium Chloride 0.9% 1,000 ML IV SCH (10:06)
[2023-09-01] MEDS: Atorvastatin Calcium 40 MG TAB PO SCH (20:18)
[2023-09-01] MEDS: Mirtazapine 15 MG TAB PO SCH (20:18)
[2023-09-01] MEDS ORDERED: Non-Formulary Item 1 EACH (Mirtazapine [Mirtazapine] 7.5 MG Tablet) PO SCH (21:00)
[2023-09-02 05:56] LABS: Hemoglobin A1c 7.8 % (4.0-6.0)
[2023-09-02 06:16] LABS: Anion Gap 14 mmol/L (10-20); BUN (Urea Nitrogen) 16 mg/dL (8.4-25.7); Calc. Creatinine Clearance 88 mL/min (70-130); Carbon Dioxide 19 mmol/L (23-31); Chloride 107 mmol/L (98-107); Estimated GFR 91; Glucose 165 mg/dL (80-115); Potassium 3.7 mmol/L (3.5-5.1); Sodium 136 mmol/L (136-145)
[2023-09-02] MEDS: Rivaroxaban 10 MG TAB PO SCH (08:46)
[2023-09-02] MEDS: CO Q-10 CAPSULE 100 MG PO SCH (08:46)
[2023-09-02] MEDS: Gabapentin 300 MG CAP PO SCH ×3 (08:46→21:27)
[2023-09-02] MEDS: Aspirin 81 mg Enteric Coated Tablet PO SCH (08:46)
[2023-09-02] MEDS: Cholecalciferol 1,000 UNITS (25 MCG) TAB PO SCH (08:46)
[2023-09-02] MEDS: Carbidopa/Levodopa 25-100 mg Tablet PO SCH ×3 (08:46→21:27)
[2023-09-02] MEDS: Amantadine HCl 100 mg Capsule PO SCH (08:46)
[2023-09-02] MEDS: Cyanocobalamin (Vitamin B-12) 1,000 MCG TAB PO SCH (08:47)
[2023-09-02] MEDS: Ascorbic Acid 500 mg Chewable Tablet PO SCH (08:47)
[2023-09-02] MEDS: HYDROcodone/Acetaminophen 5/325 mg Tablet PO PRN ×2 (08:49→14:39)
[2023-09-02] MEDS ORDERED: Amantadine HCl 100 mg Capsule PO SCH (09:00)
[2023-09-02] MEDS ORDERED: Preparation H Ointment 57 gram tube TOP PRN (10:21)
[2023-09-02] MEDS ORDERED: Dextrose 5% in Water 1,000 ML IV PRN (16:28)
[2023-09-02] MEDS ORDERED: Glucagon 1 MG/ML KIT IM PRN (16:28)
[2023-09-02] MEDS ORDERED: Dextrose 50% Abboject 50 ML SYRINGE SLOW IVP PRN (16:28)
[2023-09-02] MEDS: HumaLOG 300 UNITS/3 ML VIAL SC PRN ×2 (17:44→23:22)
[2023-09-02] MEDS: Mirtazapine 15 MG TAB PO SCH (21:27)
[2023-09-02] MEDS: Atorvastatin Calcium 40 MG TAB PO SCH (21:27)
[2023-09-02] MEDS: Acetaminophen 325 MG TAB PO PRN (23:22)
[2023-09-03] MEDS: Cyanocobalamin (Vitamin B-12) 1,000 MCG TAB PO SCH (08:12)
[2023-09-03] MEDS: Gabapentin 300 MG CAP PO SCH ×3 (08:12→20:56)
[2023-09-03] MEDS: CO Q-10 CAPSULE 100 MG PO SCH (08:12)
[2023-09-03] MEDS: Ascorbic Acid 500 mg Chewable Tablet PO SCH (08:12)
[2023-09-03] MEDS: Carbidopa/Levodopa 25-100 mg Tablet PO SCH ×3 (08:13→20:56)
[2023-09-03] MEDS: Cholecalciferol 1,000 UNITS (25 MCG) TAB PO SCH (08:13)
[2023-09-03] MEDS: Amantadine HCl 100 mg Capsule PO SCH (08:13)
[2023-09-03] MEDS: Rivaroxaban 10 MG TAB PO SCH (08:14)
[2023-09-03] MEDS: Aspirin 81 mg Enteric Coated Tablet PO SCH (08:14)
[2023-09-03] MEDS: Acetaminophen 325 MG TAB PO PRN ×2 (08:18→16:12)
[2023-09-03] MEDS ORDERED: FLU VACC QS2023(65UP)/MF59C/PF 60 MCG/0.5 ML SYRINGE IM ONE (09:00)
[2023-09-03] MEDS: HumaLOG 300 UNITS/3 ML VIAL SC PRN ×2 (12:07→17:44)
[2023-09-03] MEDS: Mirtazapine 15 MG TAB PO SCH (20:56)
[2023-09-03] MEDS: Atorvastatin Calcium 40 MG TAB PO SCH (20:56)
[2023-09-04 06:40] LABS: Hematocrit 36.9 % (42.0-52.0); Hemoglobin 11.8 g/dL (14.0-18.0); Mean Corpuscular Hemoglobin 26.7 pg (27.0-31.0); Mean Corpuscular Volume 83.5 fl (78.0-98.0); Mean Platelet Volume 9.4 fL (7.4-10.4); Platelet Count 276 10x3/uL (130-400); RBC Distribution Width 14.4 % (11.5-14.5); Red Blood Cell (RBC) Count 4.42 mill/uL (4.70-6.10); White Blood Cell (WBC) Count 6.8 10x3/uL (4.8-10.8)
[2023-09-04] MEDS: Amantadine HCl 100 mg Capsule PO SCH (07:48)
[2023-09-04] MEDS: Acetaminophen 325 MG TAB PO PRN (07:48)
[2023-09-04] MEDS: Rivaroxaban 10 MG TAB PO SCH (07:49)
[2023-09-04] MEDS: Carbidopa/Levodopa 25-100 mg Tablet PO SCH ×3 (07:50→19:57)
[2023-09-04] MEDS: Cholecalciferol 1,000 UNITS (25 MCG) TAB PO SCH (07:50)
[2023-09-04] MEDS: CO Q-10 CAPSULE 100 MG PO SCH (07:50)
[2023-09-04] MEDS: Cyanocobalamin (Vitamin B-12) 1,000 MCG TAB PO SCH (07:50)
[2023-09-04] MEDS: Gabapentin 300 MG CAP PO SCH ×3 (07:50→19:57)
[2023-09-04] MEDS: Aspirin 81 mg Enteric Coated Tablet PO SCH (07:51)
[2023-09-04] MEDS: Ascorbic Acid 500 mg Chewable Tablet PO SCH (07:51)
[2023-09-04] MEDS: HumaLOG 300 UNITS/3 ML VIAL SC PRN ×4 (08:02→20:01)
[2023-09-04] MEDS ORDERED: Preparation H Suppository PR PRN (08:23)
[2023-09-04] MEDS: INSULIN SC SCH ×2 (09:37→20:10)
[2023-09-04] MEDS: INSULIN DEGLUDEC 100 UNIT/ML SC SCH ×2 (09:37→20:10)
[2023-09-04] MEDS: HYDROcodone/Acetaminophen 5/325 mg Tablet PO PRN ×2 (10:55→19:58)
[2023-09-04] MEDS: Atorvastatin Calcium 40 MG TAB PO SCH (19:57)
[2023-09-04] MEDS: Mirtazapine 15 MG TAB PO SCH (19:58)
[2023-09-05] MEDS: HumaLOG 300 UNITS/3 ML VIAL SC PRN ×4 (05:25→20:54)
[2023-09-05] MEDS: Aspirin 81 mg Enteric Coated Tablet PO SCH (09:07)
[2023-09-05] MEDS: Gabapentin 300 MG CAP PO SCH ×3 (09:07→20:53)
[2023-09-05] MEDS: Cyanocobalamin (Vitamin B-12) 1,000 MCG TAB PO SCH (09:07)
[2023-09-05] MEDS: Cholecalciferol 1,000 UNITS (25 MCG) TAB PO SCH (09:07)
[2023-09-05] MEDS: Ascorbic Acid 500 mg Chewable Tablet PO SCH (09:07)
[2023-09-05] MEDS: Carbidopa/Levodopa 25-100 mg Tablet PO SCH ×3 (09:07→20:52)
[2023-09-05] MEDS: Rivaroxaban 10 MG TAB PO SCH (09:08)
[2023-09-05] MEDS: CO Q-10 CAPSULE 100 MG PO SCH (09:08)
[2023-09-05] MEDS: Amantadine HCl 100 mg Capsule PO SCH (09:26)
[2023-09-05] MEDS: INSULIN SC SCH ×2 (09:30→20:54)
[2023-09-05] MEDS: INSULIN DEGLUDEC 100 UNIT/ML SC SCH ×2 (09:30→20:54)
[2023-09-05] MEDS: Atorvastatin Calcium 40 MG TAB PO SCH (20:53)
[2023-09-05] MEDS: Mirtazapine 15 MG TAB PO SCH (20:53)
[2023-09-06 06:07] LABS: Hematocrit 38.2 % (42.0-52.0); Hemoglobin 12.3 g/dL (14.0-18.0); Mean Corpuscular HGB CONC 32.2 g/dL (32.0-36.0); Mean Corpuscular Volume 83.8 fl (78.0-98.0); Mean Platelet Volume 9.3 fL (7.4-10.4); Platelet Count 327 10x3/uL (130-400); RBC Distribution Width 14.5 % (11.5-14.5); Red Blood Cell (RBC) Count 4.56 mill/uL (4.70-6.10)
[2023-09-06 06:35] LABS: Anion Gap 13 mmol/L (10-20); BUN (Urea Nitrogen) 22 mg/dL (8.4-25.7); Calc. Creatinine Clearance 92 mL/min (70-130); Calcium 9.6 mg/dL (7.8-10.44); Carbon Dioxide 27 mmol/L (23-31); Chloride 101 mmol/L (98-107); Estimated GFR 93; Glucose 79 mg/dL (80-115); Potassium 4.4 mmol/L (3.5-5.1); Sodium 137 mmol/L (136-145)
[2023-09-06] MEDS: CO Q-10 CAPSULE 100 MG PO SCH (08:13)
[2023-09-06] MEDS: Ascorbic Acid 500 mg Chewable Tablet PO SCH (08:13)
[2023-09-06] MEDS: Cyanocobalamin (Vitamin B-12) 1,000 MCG TAB PO SCH (08:13)
[2023-09-06] MEDS: Aspirin 81 mg Enteric Coated Tablet PO SCH (08:14)
[2023-09-06] MEDS: Cholecalciferol 1,000 UNITS (25 MCG) TAB PO SCH (08:14)
[2023-09-06] MEDS: Gabapentin 300 MG CAP PO SCH ×3 (08:14→21:31)
[2023-09-06] MEDS: Amantadine HCl 100 mg Capsule PO SCH (08:14)
[2023-09-06] MEDS: Carbidopa/Levodopa 25-100 mg Tablet PO SCH ×3 (08:14→21:31)
[2023-09-06] MEDS ORDERED: Sodium Chloride 0.9% 500 ML IV SCH (08:30)
[2023-09-06] MEDS: INSULIN DEGLUDEC 100 UNIT/ML SC SCH ×2 (09:22→21:40)
[2023-09-06] MEDS: INSULIN SC SCH ×2 (09:22→21:40)
[2023-09-06] MEDS ORDERED: GoLYTELY 4,000 ml Bottle PO SCH (16:00)
[2023-09-06 16:34] LABS: Hematocrit 33.9 % (42.0-52.0); Hemoglobin 10.9 g/dL (14.0-18.0)
[2023-09-06] MEDS: Atorvastatin Calcium 40 MG TAB PO SCH (21:31)
[2023-09-06] MEDS: Mirtazapine 15 MG TAB PO SCH (21:31)
[2023-09-07 06:05] LABS: Hemoglobin 10.8 g/dL (14.0-18.0); Mean Corpuscular HGB CONC 32.7 g/dL (32.0-36.0); Mean Corpuscular Hemoglobin 27.5 pg (27.0-31.0); Mean Platelet Volume 9.1 fL (7.4-10.4); Platelet Count 317 10x3/uL (130-400); RBC Distribution Width 14.6 % (11.5-14.5); Red Blood Cell (RBC) Count 3.93 mill/uL (4.70-6.10); White Blood Cell (WBC) Count 7.1 10x3/uL (4.8-10.8)
[2023-09-07] MEDS: CO Q-10 CAPSULE 100 MG PO SCH (08:33)
[2023-09-07] MEDS: Cyanocobalamin (Vitamin B-12) 1,000 MCG TAB PO SCH (08:33)
[2023-09-07] MEDS: Aspirin 81 mg Enteric Coated Tablet PO SCH (08:33)
[2023-09-07] MEDS: Ascorbic Acid 500 mg Chewable Tablet PO SCH (08:34)
[2023-09-07] MEDS: Amantadine HCl 100 mg Capsule PO SCH (08:34)
[2023-09-07] MEDS: Cholecalciferol 1,000 UNITS (25 MCG) TAB PO SCH (08:34)
[2023-09-07] MEDS: Carbidopa/Levodopa 25-100 mg Tablet PO SCH ×3 (08:34→21:13)
[2023-09-07] MEDS: INSULIN SC SCH ×2 (08:34→21:14)
[2023-09-07] MEDS: Gabapentin 300 MG CAP PO SCH ×3 (08:34→21:13)
[2023-09-07] MEDS: INSULIN DEGLUDEC 100 UNIT/ML SC SCH ×2 (08:34→21:14)
[2023-09-07] MEDS ORDERED: GoLYTELY 4,000 ml Bottle PO SCH (11:00)
[2023-09-07] MEDS: HumaLOG 300 UNITS/3 ML VIAL SC PRN ×3 (12:12→21:14)
[2023-09-07] MEDS: Atorvastatin Calcium 40 MG TAB PO SCH (21:12)
[2023-09-07] MEDS: Mirtazapine 15 MG TAB PO SCH (21:12)
[2023-09-08] MEDS: HYDROcodone/Acetaminophen 5/325 mg Tablet PO PRN ×2 (04:35→19:33)
[2023-09-08 06:19] LABS: #Eosinphils 0.2 thou/uL (0.0-0.7); #Monocytes 0.6 thou/uL (0.11-0.59); #Neutrophils 4.5 thou/uL (1.40-6.50); %Basophils 0.6 % (0.0-1.0); %Eosinophils 2.7 % (0.0-10.0); %Lymphocytes 20.4 % (21.0-51.0); %Monocytes 9.1 % (0.0-10.0); %Neutrophils 66.9 % (42.0-75.0); Hematocrit 31.2 % (42.0-52.0); Hemoglobin 10.5 g/dL (14.0-18.0); Mean Corpuscular HGB CONC 33.7 g/dL (32.0-36.0); Mean Corpuscular Hemoglobin 27.6 pg (27.0-31.0); Mean Corpuscular Volume 82.1 fl (78.0-98.0); Mean Platelet Volume 9.2 fL (7.4-10.4); Platelet Count 335 10x3/uL (130-400); RBC Distribution Width 14.3 % (11.5-14.5); White Blood Cell (WBC) Count 6.7 10x3/uL (4.8-10.8)
[2023-09-08 06:52] LABS: Anion Gap 14 mmol/L (10-20); BUN (Urea Nitrogen) 9 mg/dL (8.4-25.7); Calc. Creatinine Clearance 96 mL/min (70-130); Calcium 8.8 mg/dL (7.8-10.44); Carbon Dioxide 27 mmol/L (23-31); Chloride 102 mmol/L (98-107); Estimated GFR 95; Glucose 113 mg/dL (80-115); Potassium 3.5 mmol/L (3.5-5.1); Sodium 139 mmol/L (136-145)
[2023-09-08] MEDS: Aspirin 81 mg Enteric Coated Tablet PO SCH (08:42)
[2023-09-08] MEDS: Cyanocobalamin (Vitamin B-12) 1,000 MCG TAB PO SCH (08:42)
[2023-09-08] MEDS: Carbidopa/Levodopa 25-100 mg Tablet PO SCH ×3 (08:42→19:32)
[2023-09-08] MEDS: INSULIN SC SCH ×2 (08:42→19:33)
[2023-09-08] MEDS: Amantadine HCl 100 mg Capsule PO SCH (08:42)
[2023-09-08] MEDS: Cholecalciferol 1,000 UNITS (25 MCG) TAB PO SCH (08:42)
[2023-09-08] MEDS: INSULIN DEGLUDEC 100 UNIT/ML SC SCH ×2 (08:42→19:33)
[2023-09-08] MEDS: Ascorbic Acid 500 mg Chewable Tablet PO SCH (08:42)
[2023-09-08] MEDS: Gabapentin 300 MG CAP PO SCH ×3 (08:42→19:32)
[2023-09-08] MEDS: CO Q-10 CAPSULE 100 MG PO SCH (08:43)
[2023-09-08] MEDS: Rivaroxaban 10 MG TAB PO SCH (08:43)
[2023-09-08] MEDS ORDERED: Lidocaine 1% PF 5 ML VIAL ONE (09:57)
[2023-09-08] MEDS ORDERED: PROPOFOL 40 ML ONE (09:57)
[2023-09-08] MEDS ORDERED: PHENYLEPHRINE-NS 100 MCG/ML 10 ML SYRINGE ONE (10:35)
[2023-09-08] MEDS: Mirtazapine 15 MG TAB PO SCH (19:32)
[2023-09-08] MEDS: Atorvastatin Calcium 40 MG TAB PO SCH (19:32)
[2023-09-09] MEDS: HumaLOG 300 UNITS/3 ML VIAL SC PRN (05:47)
[2023-09-09 06:27] LABS: #Basophils 0.1 thou/uL (0.0-0.2); #Eosinphils 0.2 thou/uL (0.0-0.7); #Monocytes 0.5 thou/uL (0.11-0.59); #Neutrophils 3.5 thou/uL (1.40-6.50); %Basophils 1.1 % (0.0-1.0); %Eosinophils 4.2 % (0.0-10.0); %Lymphocytes 19.5 % (21.0-51.0); %Monocytes 9.6 % (0.0-10.0); Hematocrit 32.6 % (42.0-52.0); Hemoglobin 10.6 g/dL (14.0-18.0); Mean Corpuscular HGB CONC 32.5 g/dL (32.0-36.0); Mean Corpuscular Hemoglobin 27.2 pg (27.0-31.0); Mean Corpuscular Volume 83.8 fl (78.0-98.0); Mean Platelet Volume 9.2 fL (7.4-10.4); Platelet Count 325 10x3/uL (130-400); RBC Distribution Width 14.4 % (11.5-14.5); Red Blood Cell (RBC) Count 3.89 mill/uL (4.70-6.10); White Blood Cell (WBC) Count 5.4 10x3/uL (4.8-10.8)
[2023-09-09 06:53] LABS: Anion Gap 11 mmol/L (10-20); BUN (Urea Nitrogen) 13 mg/dL (8.4-25.7); Calc. Creatinine Clearance 91 mL/min (70-130); Calcium 8.8 mg/dL (7.8-10.44); Carbon Dioxide 25 mmol/L (23-31); Chloride 103 mmol/L (98-107); Estimated GFR 93; Glucose 208 mg/dL (80-115); Potassium 3.5 mmol/L (3.5-5.1); Sodium 135 mmol/L (136-145)
[2023-09-09] MEDS: Gabapentin 300 MG CAP PO SCH ×3 (08:24→20:21)
[2023-09-09] MEDS: Cyanocobalamin (Vitamin B-12) 1,000 MCG TAB PO SCH (08:24)
[2023-09-09] MEDS: Cholecalciferol 1,000 UNITS (25 MCG) TAB PO SCH (08:25)
[2023-09-09] MEDS: Ascorbic Acid 500 mg Chewable Tablet PO SCH (08:25)
[2023-09-09] MEDS: Carbidopa/Levodopa 25-100 mg Tablet PO SCH ×3 (08:25→20:21)
[2023-09-09] MEDS: CO Q-10 CAPSULE 100 MG PO SCH (08:25)
[2023-09-09] MEDS: Rivaroxaban 10 MG TAB PO SCH (08:25)
[2023-09-09] MEDS: Aspirin 81 mg Enteric Coated Tablet PO SCH (08:25)
[2023-09-09] MEDS: Polyethylene Glycol 3350 17 GM Packet PO SCH (08:25)
[2023-09-09] MEDS: Amantadine HCl 100 mg Capsule PO SCH (08:25)
[2023-09-09] MEDS: INSULIN SC SCH ×2 (08:29→18:14)
[2023-09-09] MEDS: INSULIN DEGLUDEC 100 UNIT/ML SC SCH ×2 (08:29→18:14)
[2023-09-09] MEDS: Docusate 100 MG CAP PO PRN (18:01)
[2023-09-09] MEDS: Atorvastatin Calcium 40 MG TAB PO SCH (20:21)
[2023-09-09] MEDS: Mirtazapine 15 MG TAB PO SCH (20:22)
[2023-09-10] MEDS: Amantadine HCl 100 mg Capsule PO SCH (08:04)
[2023-09-10] MEDS: Aspirin 81 mg Enteric Coated Tablet PO SCH (08:04)
[2023-09-10] MEDS: Ascorbic Acid 500 mg Chewable Tablet PO SCH (08:04)
[2023-09-10] MEDS: Gabapentin 300 MG CAP PO SCH ×3 (08:05→21:20)
[2023-09-10] MEDS: Cholecalciferol 1,000 UNITS (25 MCG) TAB PO SCH (08:05)
[2023-09-10] MEDS: Carbidopa/Levodopa 25-100 mg Tablet PO SCH ×3 (08:05→21:19)
[2023-09-10] MEDS: Cyanocobalamin (Vitamin B-12) 1,000 MCG TAB PO SCH (08:05)
[2023-09-10] MEDS: INSULIN DEGLUDEC 100 UNIT/ML SC SCH ×2 (08:06→21:22)
[2023-09-10] MEDS: Polyethylene Glycol 3350 17 GM Packet PO SCH (08:06)
[2023-09-10] MEDS: INSULIN SC SCH ×2 (08:06→21:22)
[2023-09-10] MEDS: CO Q-10 CAPSULE 100 MG PO SCH (08:07)
[2023-09-10] MEDS: Rivaroxaban 10 MG TAB PO SCH (08:07)
[2023-09-10] MEDS: Docusate 100 MG CAP PO PRN (08:18)
[2023-09-10] MEDS: HumaLOG 300 UNITS/3 ML VIAL SC PRN ×2 (12:22→16:56)
[2023-09-10] MEDS ORDERED: Simethicone Chewable 80 MG TAB PO PRN (12:42)
[2023-09-10] MEDS ORDERED: Bisacodyl 10 MG SUPP PR PRN (15:28)
[2023-09-10] MEDS ORDERED: Milk Of Magnesia 30 ML UDCUP PO SCH (15:30)
[2023-09-10] MEDS ORDERED: Bisacodyl 5 MG TAB PO SCH (15:30)
[2023-09-10] MEDS: Senokot S 8.6-50 MG TAB PO SCH (21:19)
[2023-09-10] MEDS: Atorvastatin Calcium 40 MG TAB PO SCH (21:20)
[2023-09-10] MEDS: Mirtazapine 15 MG TAB PO SCH (21:20)
[2023-09-11 09:20] LABS: Anion Gap 14 mmol/L (10-20); BUN (Urea Nitrogen) 14 mg/dL (8.4-25.7); Calc. Creatinine Clearance 90 mL/min (70-130); Calcium 8.9 mg/dL (7.8-10.44); Carbon Dioxide 23 mmol/L (23-31); Chloride 103 mmol/L (98-107); Estimated GFR 93; Glucose 162 mg/dL (80-115); Magnesium 1.8 mg/dL (1.6-2.6); Potassium 3.9 mmol/L (3.5-5.1); Sodium 136 mmol/L (136-145)
[2023-09-11] MEDS: Aspirin 81 mg Enteric Coated Tablet PO SCH (09:26)
[2023-09-11] MEDS: Senokot S 8.6-50 MG TAB PO SCH ×2 (09:26→20:08)
[2023-09-11] MEDS: Carbidopa/Levodopa 25-100 mg Tablet PO SCH ×3 (09:26→20:07)
[2023-09-11] MEDS: Amantadine HCl 100 mg Capsule PO SCH (09:26)
[2023-09-11] MEDS: Ascorbic Acid 500 mg Chewable Tablet PO SCH (09:26)
[2023-09-11] MEDS: Rivaroxaban 10 MG TAB PO SCH (09:27)
[2023-09-11] MEDS: Gabapentin 300 MG CAP PO SCH ×3 (09:27→20:08)
[2023-09-11] MEDS: Cholecalciferol 1,000 UNITS (25 MCG) TAB PO SCH (09:27)
[2023-09-11] MEDS: Cyanocobalamin (Vitamin B-12) 1,000 MCG TAB PO SCH (09:27)
[2023-09-11] MEDS: Polyethylene Glycol 3350 17 GM Packet PO SCH (09:27)
[2023-09-11] MEDS: CO Q-10 CAPSULE 100 MG PO SCH (09:27)
[2023-09-11] MEDS: INSULIN DEGLUDEC 100 UNIT/ML SC SCH (09:57)
[2023-09-11] MEDS: INSULIN SC SCH (09:57)
[2023-09-11] MEDS: Acetaminophen 325 MG TAB PO PRN ×2 (11:23→20:06)
[2023-09-11 13:49] LABS: Bacteria/HPF None Seen HPF (None Seen); Bilirubin Negative (Negative); Blood, Urine Negative (Negative); CAUTI Indications for Culture Pelvic or flank pain; Clarity Clear (Clear); Glucose, Urine (Dipstick) 70 mg/dL (Negative); Ketone, Urine Negative (Negative); Leukocyte Negative Leu/uL (Negative); Nitrite Negative (Negative); Protein, Urine (Dipstick) Negative (Neg-Trace); RBC/HPF 0-3 HPF (0-3); Squamous Epithelial None Seen HPF (0-3); Urobilinogen Normal mg/dL (Less than 2); WBC/HPF 0-3 HPF (0-3)
[2023-09-11 13:54] LABS: Urine Culture Reflex No No
[2023-09-11] MEDS: HumaLOG 300 UNITS/3 ML VIAL SC PRN (18:39)
[2023-09-11] MEDS: Tamsulosin HCl 0.4 MG CAP PO SCH (20:07)
[2023-09-11] MEDS: Atorvastatin Calcium 40 MG TAB PO SCH (20:08)
[2023-09-11] MEDS: Mirtazapine 15 MG TAB PO SCH (20:11)
[2023-09-11] MEDS: Insulin Glargine 30 UNITS/0.3 ML VIAL SC SCH (20:12)
[2023-09-12 08:02] LABS: Anion Gap 11 mmol/L (10-20); BUN (Urea Nitrogen) 15 mg/dL (8.4-25.7); Calc. Creatinine Clearance 80 mL/min (70-130); Calcium 8.7 mg/dL (7.8-10.44); Carbon Dioxide 25 mmol/L (23-31); Chloride 106 mmol/L (98-107); Estimated GFR 81; Glucose 148 mg/dL (80-115); Magnesium 1.8 mg/dL (1.6-2.6); Potassium 3.8 mmol/L (3.5-5.1); Sodium 138 mmol/L (136-145)
[2023-09-12] MEDS: Insulin Glargine 30 UNITS/0.3 ML VIAL SC SCH ×2 (10:02→22:52)
[2023-09-12] MEDS: Amantadine HCl 100 mg Capsule PO SCH (10:04)
[2023-09-12] MEDS: Carbidopa/Levodopa 25-100 mg Tablet PO SCH ×3 (10:05→22:51)
[2023-09-12] MEDS: Gabapentin 300 MG CAP PO SCH ×3 (10:05→22:51)
[2023-09-12] MEDS: Ascorbic Acid 500 mg Chewable Tablet PO SCH (10:05)
[2023-09-12] MEDS: Aspirin 81 mg Enteric Coated Tablet PO SCH (10:05)
[2023-09-12] MEDS: Cyanocobalamin (Vitamin B-12) 1,000 MCG TAB PO SCH (10:05)
[2023-09-12] MEDS: Cholecalciferol 1,000 UNITS (25 MCG) TAB PO SCH (10:05)
[2023-09-12] MEDS: Rivaroxaban 10 MG TAB PO SCH (10:06)
[2023-09-12] MEDS: Polyethylene Glycol 3350 17 GM Packet PO SCH (10:06)
[2023-09-12] MEDS: Senokot S 8.6-50 MG TAB PO SCH ×2 (10:06→22:52)
[2023-09-12] MEDS: CO Q-10 CAPSULE 100 MG PO SCH (10:06)
[2023-09-12] MEDS: HumaLOG 300 UNITS/3 ML VIAL SC PRN ×2 (13:53→17:36)
[2023-09-12] MEDS: Atorvastatin Calcium 40 MG TAB PO SCH (22:51)
[2023-09-12] MEDS: Mirtazapine 15 MG TAB PO SCH (22:51)
[2023-09-12] MEDS: Tamsulosin HCl 0.4 MG CAP PO SCH (22:52)
[2023-09-13 08:13] LABS: Anion Gap 12 mmol/L (10-20); BUN (Urea Nitrogen) 10 mg/dL (8.4-25.7); Calc. Creatinine Clearance 92 mL/min (70-130); Calcium 8.6 mg/dL (7.8-10.44); Carbon Dioxide 25 mmol/L (23-31); Chloride 107 mmol/L (98-107); Estimated GFR 93; Glucose 64 mg/dL (80-115); Magnesium 1.8 mg/dL (1.6-2.6); Sodium 140 mmol/L (136-145)
[2023-09-13] MEDS: Polyethylene Glycol 3350 17 GM Packet PO SCH (08:33)
[2023-09-13] MEDS: CO Q-10 CAPSULE 100 MG PO SCH (08:34)
[2023-09-13] MEDS: Rivaroxaban 10 MG TAB PO SCH (08:34)
[2023-09-13] MEDS: Amantadine HCl 100 mg Capsule PO SCH (08:34)
[2023-09-13] MEDS: Gabapentin 300 MG CAP PO SCH ×2 (08:34→14:34)
[2023-09-13] MEDS: Senokot S 8.6-50 MG TAB PO SCH (08:34)
[2023-09-13] MEDS: Carbidopa/Levodopa 25-100 mg Tablet PO SCH ×2 (08:34→14:34)
[2023-09-13] MEDS: Aspirin 81 mg Enteric Coated Tablet PO SCH (08:34)
[2023-09-13] MEDS: Cholecalciferol 1,000 UNITS (25 MCG) TAB PO SCH (08:35)
[2023-09-13] MEDS: Cyanocobalamin (Vitamin B-12) 1,000 MCG TAB PO SCH (08:35)
[2023-09-13] MEDS: Ascorbic Acid 500 mg Chewable Tablet PO SCH (08:35)
[2023-09-13] MEDS: Insulin Glargine 30 UNITS/0.3 ML VIAL SC SCH (08:36)
[2023-09-13 17:20] VITALS: BP 166/80; TEMP 97.5
== END 2023-09-13 18:41 | disposition home health service (06) | DRG 551 ==
LOC: ERS 11:54 → T4-B 17:30
PROVIDERS: ADMIT Hospitalist; ATTEND Hospitalist
PROC: 0DB58ZX Excision of Esophagus, Via Natural or Artificial Opening Endoscopic, Diagnostic (ICD-10-PCS; principal; 2023-09-08)
PROC: 0DB68ZX Excision of Stomach, Via Natural or Artificial Opening Endoscopic, Diagnostic (ICD-10-PCS; 2023-09-08)
PROC: 0DJD8ZZ Inspection of Lower Intestinal Tract, Via Natural or Artificial Opening Endoscopic (ICD-10-PCS; 2023-09-08)
DX: M47.816 Spondylosis without myelopathy or radiculopathy, lumbar region (principal); K21.01 Gastro-esophageal reflux disease with esophagitis, with bleeding; K26.4 Chronic or unspecified duodenal ulcer with hemorrhage; K29.71 Gastritis, unspecified, with bleeding; E44.0 Moderate protein-calorie malnutrition; D62 Acute posthemorrhagic anemia; E78.5 Hyperlipidemia, unspecified; G20.A1 Parkinson's disease without dyskinesia, without mention of fluctuations; E11.40 Type 2 diabetes mellitus with diabetic neuropathy, unspecified; G89.29 Other chronic pain; E86.0 Dehydration; K59.09 Other constipation; K64.9 Unspecified hemorrhoids; I25.10 Atherosclerotic heart disease of native coronary artery without angina pectoris; K22.70 Barrett's esophagus without dysplasia; Z91.040 Latex allergy status; Z88.0 Allergy status to penicillin; Z79.899 Other long term (current) drug therapy; Z79.82 Long term (current) use of aspirin; I25.2 Old myocardial infarction; Z86.73 Personal history of transient ischemic attack (TIA), and cerebral infarction without residual deficits; Z86.711 Personal history of pulmonary embolism; Z79.4 Long term (current) use of insulin; Z98.890 Other specified postprocedural states; K26.9 Duodenal ulcer, unspecified as acute or chronic, without hemorrhage or perforation; R53.81 Other malaise; R33.9 Retention of urine, unspecified; Z68.24 Body mass index [BMI] 24.0-24.9, adult
CPT/HCPCS: 36415; 36416; 70450; 70551; 72131; 72141; 80048; 80053; 81001; 83036; 83735; 85025; 85027; 88305; 90471; 90694; 93005; 96374; G0008; J1815; J1885; J2270; J2272; J2405; J2704; J7030; J7050

== ENCOUNTER 2023-09-22 11:29 | Emergency (ER) | payer MEDICARE, OTHER | END 2023-09-22 12:15 | disposition home or self-care (01) | LOC: ERS 11:29 | DX: S40.022A Contusion of left upper arm, initial encounter (principal); S40.812A Abrasion of left upper arm, initial encounter; S90.425A Blister (nonthermal), left lesser toe(s), initial encounter; M70.22 Olecranon bursitis, left elbow; I25.2 Old myocardial infarction; E11.9 Type 2 diabetes mellitus without complications; E78.5 Hyperlipidemia, unspecified; G20.A1 Parkinson's disease without dyskinesia, without mention of fluctuations; W22.01XA Walked into wall, initial encounter; Z79.82 Long term (current) use of aspirin; Z86.73 Personal history of transient ischemic attack (TIA), and cerebral infarction without residual deficits; Z86.711 Personal history of pulmonary embolism; Z79.899 Other long term (current) drug therapy | CPT/HCPCS: 99283 ==

== ENCOUNTER 2023-10-17 20:44 | Inpatient (IN) | payer OTHER ==
[~2023-10-17 20:44] MED LIST changes: -ISOVUE-370 76%-LOCM 1 ML ONE; +Iopamidol-370 76% 500 ML MDV (1 ML CHARGE) ONE
[2023-10-17 21:22] LABS: #Basophils 0.1 thou/uL (0.0-0.2); #Eosinphils 0.2 thou/uL (0.0-0.7); #Monocytes 0.6 thou/uL (0.11-0.59); #Neutrophils 4.9 thou/uL (1.40-6.50); %Basophils 0.7 % (0.0-1.0); %Eosinophils 3.3 % (0.0-10.0); %Lymphocytes 20.2 % (21.0-51.0); %Neutrophils 67.4 % (42.0-75.0); Hematocrit 33.3 % (42.0-52.0); Hemoglobin 10.7 g/dL (14.0-18.0); Mean Corpuscular HGB CONC 32.1 g/dL (32.0-36.0); Mean Corpuscular Hemoglobin 27.6 pg (27.0-31.0); Mean Corpuscular Volume 85.8 fl (78.0-98.0); Mean Platelet Volume 9.9 fL (7.4-10.4); Platelet Count 235 10x3/uL (130-400); RBC Distribution Width 15.1 % (11.5-14.5); Red Blood Cell (RBC) Count 3.88 mill/uL (4.70-6.10); White Blood Cell (WBC) Count 7.2 10x3/uL (4.8-10.8)
[2023-10-17 21:49] LABS: Troponin I Less than 0.010 ng/mL (< 0.028)
[2023-10-17 21:51] LABS: ALT (SGPT) Less than 7 U/L (8-55); AST (SGOT) 16 U/L (5-34); Albumin 3.9 g/dL (3.4-4.8); Alkaline Phosphatase 66 U/L (40-110); Anion Gap 15 mmol/L (10-20); BUN (Urea Nitrogen) 22 mg/dL (8.4-25.7); Bilirubin, Total 0.5 mg/dL (0.2-1.2); Calc. Creatinine Clearance 0 mL/min (70-130); Calcium 9.1 mg/dL (7.8-10.44); Carbon Dioxide 19 mmol/L (23-31); Chloride 108 mmol/L (98-107); Estimated GFR 67; Globulin 2.2 g/dL (2.4-3.5); Glucose 71 mg/dL (80-115); Lipase 16 U/L (8-78); Potassium 4.1 mmol/L (3.5-5.1); Protein, Total 6.1 g/dL (5.8-8.1); Sodium 138 mmol/L (136-145)
[2023-10-17 23:52] LABS: Bacteria/HPF None Seen HPF (None Seen); Bilirubin Negative (Negative); Blood, Urine Negative (Negative); CAUTI Indications for Culture Alt mental st,lethar; Clarity Clear (Clear); Glucose, Urine (Dipstick) Normal (Negative); Ketone, Urine Negative (Negative); Leukocyte Negative Leu/uL (Negative); Nitrite Negative (Negative); Protein, Urine (Dipstick) Negative (Neg-Trace); RBC/HPF 0-3 HPF (0-3); Specific Gravity, Urine 1.013 (1.002-1.036); Squamous Epithelial None Seen HPF (0-3); Urobilinogen Normal mg/dL (Less than 2); WBC/HPF None Seen HPF (0-3)
[2023-10-17 23:54] LABS: Urine Culture Reflex No No
[2023-10-18] MEDS ORDERED: Acetaminophen 650 MG Suppository PR PRN (00:55)
[2023-10-18] MEDS ORDERED: Ondansetron ODT 4 MG TAB PO PRN (00:55)
[2023-10-18] MEDS ORDERED: Dextrose 5% in Water 1,000 ML IV PRN (00:55)
[2023-10-18] MEDS ORDERED: Glucagon 1 MG/ML KIT IM PRN (00:55)
[2023-10-18] MEDS ORDERED: Ondansetron PF 4 MG/2 ML Vial IVP PRN (00:55)
[2023-10-18 03:58] LABS: #Basophils 0.1 thou/uL (0.0-0.2); #Eosinphils 0.2 thou/uL (0.0-0.7); #Monocytes 0.9 thou/uL (0.11-0.59); #Neutrophils 7.9 thou/uL (1.40-6.50); %Basophils 0.6 % (0.0-1.0); %Eosinophils 1.9 % (0.0-10.0); %Lymphocytes 13.7 % (21.0-51.0); %Monocytes 8.6 % (0.0-10.0); %Neutrophils 74.9 % (42.0-75.0); Hematocrit 36.7 % (42.0-52.0); Hemoglobin 11.7 g/dL (14.0-18.0); Mean Corpuscular HGB CONC 31.9 g/dL (32.0-36.0); Mean Corpuscular Hemoglobin 27.5 pg (27.0-31.0); Mean Corpuscular Volume 86.2 fl (78.0-98.0); Mean Platelet Volume 10.1 fL (7.4-10.4); Platelet Count 228 10x3/uL (130-400); Red Blood Cell (RBC) Count 4.26 mill/uL (4.70-6.10); White Blood Cell (WBC) Count 10.5 10x3/uL (4.8-10.8)
[2023-10-18 04:26] LABS: ALT (SGPT) 10 U/L (8-55); AST (SGOT) 11 U/L (5-34); Alkaline Phosphatase 71 U/L (40-110); Anion Gap 14 mmol/L (10-20); BUN (Urea Nitrogen) 22 mg/dL (8.4-25.7); Bilirubin, Total 0.6 mg/dL (0.2-1.2); Calc. Creatinine Clearance 0 mL/min (70-130); Calcium 9.3 mg/dL (7.8-10.44); Carbon Dioxide 20 mmol/L (23-31); Chloride 107 mmol/L (98-107); Estimated GFR 85; Globulin 2.8 g/dL (2.4-3.5); Potassium 3.7 mmol/L (3.5-5.1); Protein, Total 6.8 g/dL (5.8-8.1); Sodium 137 mmol/L (136-145)
[2023-10-18] MEDS: Sodium Chloride 0.9% 1,000 ML IV SCH ×2 (04:30→04:31)
[2023-10-18 04:45] LABS: Critical Call Chemistry NUR.LM20@0444; Glucose 49 mg/dL (80-115)
[2023-10-18] MEDS ORDERED: Tamsulosin HCl 0.4 MG CAP ONE (04:55)
[2023-10-18] MEDS: Tamsulosin HCl 0.4 MG CAP PO SCH ×2 (05:00→20:51)
[2023-10-18] MEDS: Bisacodyl 10 MG SUPP PR SCH (05:02)
[2023-10-18] MEDS: Magnesium Citrate 300 ML BOT PO SCH (05:02)
[2023-10-18] MEDS: Dextrose 50% Abboject 50 ML SYRINGE SLOW IVP PRN (05:04)
[2023-10-18] MEDS ORDERED: Rivaroxaban 10 MG TAB PO SCH (09:00)
[2023-10-18] MEDS ORDERED: Gabapentin 300 MG CAP ONE (10:15)
[2023-10-18] MEDS: Gabapentin 300 MG CAP PO SCH (10:31)
[2023-10-18] MEDS: Carbidopa/Levodopa 25-100 mg Tablet PO SCH (10:38)
[2023-10-18] MEDS: Amantadine HCl 100 mg Capsule PO SCH (10:38)
[2023-10-18] MEDS: Mirtazapine 15 MG TAB PO SCH (20:52)
[2023-10-19] MEDS: HYDROcodone/Acetaminophen 5/325 mg Tablet PO PRN (00:32)
[2023-10-19] MEDS: Acetaminophen 325 MG TAB PO PRN (15:26)
[2023-10-19] MEDS: HumaLOG 300 UNITS/3 ML VIAL SC PRN (17:58)
[2023-10-19] MEDS: Senokot S 8.6-50 MG TAB PO SCH (20:16)
[2023-10-20 05:36] LABS: #Eosinphils 0.3 thou/uL (0.0-0.7); #Monocytes 0.6 thou/uL (0.11-0.59); #Neutrophils 4.4 thou/uL (1.40-6.50); %Basophils 0.6 % (0.0-1.0); %Lymphocytes 16.7 % (21.0-51.0); %Monocytes 9.4 % (0.0-10.0); Hematocrit 32.5 % (42.0-52.0); Hemoglobin 10.7 g/dL (14.0-18.0); Mean Corpuscular HGB CONC 32.9 g/dL (32.0-36.0); Mean Corpuscular Hemoglobin 27.6 pg (27.0-31.0); Mean Corpuscular Volume 83.8 fl (78.0-98.0); Platelet Count 228 10x3/uL (130-400); RBC Distribution Width 14.9 % (11.5-14.5); Red Blood Cell (RBC) Count 3.88 mill/uL (4.70-6.10); White Blood Cell (WBC) Count 6.3 10x3/uL (4.8-10.8)
[2023-10-20 06:08] LABS: Anion Gap 14 mmol/L (10-20); BUN (Urea Nitrogen) 15 mg/dL (8.4-25.7); Calc. Creatinine Clearance 76 mL/min (70-130); Calcium 8.9 mg/dL (7.8-10.44); Carbon Dioxide 18 mmol/L (23-31); Chloride 111 mmol/L (98-107); Estimated GFR 79; Glucose 215 mg/dL (80-115); Potassium 3.5 mmol/L (3.5-5.1); Sodium 139 mmol/L (136-145)
[2023-10-20] MEDS: Rivaroxaban 10 MG TAB PO SCH (08:19)
[2023-10-21] MEDS ORDERED: Naloxegol 12.5 MG TAB PO SCH (10:30)
[2023-10-21] MEDS: Naloxegol 12.5 MG TAB PO SCH (10:46)
[2023-10-21] MEDS: HumaLOG 300 UNITS/3 ML VIAL SC PRN (23:37)
[2023-10-22] MEDS: Naloxegol 12.5 MG TAB PO SCH (09:41)
[2023-10-22] MEDS: Insulin Glargine 30 UNITS/0.3 ML VIAL SC SCH (20:50)
[2023-10-23] MEDS: Sodium Chloride 0.9% 1,000 ML IV SCH (01:30)
[2023-10-23] MEDS: Insulin Glargine 30 UNITS/0.3 ML VIAL SC SCH (09:23)
[2023-10-24] MEDS: Insulin Glargine 30 UNITS/0.3 ML VIAL SC SCH ×2 (08:07→20:24)
[2023-10-24 13:34] LABS: #Eosinphils 0.3 thou/uL (0.0-0.7); #Monocytes 0.5 thou/uL (0.11-0.59); #Neutrophils 3.5 thou/uL (1.40-6.50); %Basophils 0.7 % (0.0-1.0); %Eosinophils 5.7 % (0.0-10.0); %Lymphocytes 22.5 % (21.0-51.0); %Monocytes 8.8 % (0.0-10.0); %Neutrophils 61.9 % (42.0-75.0); Hemoglobin 11.5 g/dL (14.0-18.0); Mean Corpuscular HGB CONC 32.9 g/dL (32.0-36.0); Mean Corpuscular Hemoglobin 27.8 pg (27.0-31.0); Mean Corpuscular Volume 84.7 fl (78.0-98.0); Mean Platelet Volume 9.3 fL (7.4-10.4); Platelet Count 276 10x3/uL (130-400); RBC Distribution Width 14.8 % (11.5-14.5); Red Blood Cell (RBC) Count 4.13 mill/uL (4.70-6.10); White Blood Cell (WBC) Count 5.6 10x3/uL (4.8-10.8)
[2023-10-24 14:01] LABS: ALT (SGPT) Less than 7 U/L (8-55); AST (SGOT) 15 U/L (5-34); Albumin 3.8 g/dL (3.4-4.8); Alkaline Phosphatase 67 U/L (40-110); Anion Gap 11 mmol/L (10-20); BUN (Urea Nitrogen) 15 mg/dL (8.4-25.7); Bilirubin, Total 0.4 mg/dL (0.2-1.2); Calc. Creatinine Clearance 84 mL/min (70-130); Calcium 9.3 mg/dL (7.8-10.44); Carbon Dioxide 28 mmol/L (23-31); Chloride 99 mmol/L (98-107); Estimated GFR 86; Globulin 3.1 g/dL (2.4-3.5); Glucose 274 mg/dL (80-115); Magnesium 1.8 mg/dL (1.6-2.6); Phosphorus 3.8 mg/dL (2.3-4.7); Potassium 4.2 mmol/L (3.5-5.1); Protein, Total 6.9 g/dL (5.8-8.1); Sodium 134 mmol/L (136-145)
[2023-10-24 14:22] LABS: Vitamin D, 25 Hydroxy 40.5 ng/ml (> 30.0)
[2023-10-24] MEDS: Polyethylene Glycol 3350 17 GM Packet PO SCH (20:23)
[2023-10-24] MEDS: Multivit, Therapeutic 1 TAB PO SCH (20:24)
[2023-10-25] MEDS: HumaLOG 300 UNITS/3 ML VIAL SC PRN (05:11)
[2023-10-25] MEDS ORDERED: Insulin Glargine 30 UNITS/0.3 ML VIAL SC SCH (15:18)
[2023-10-25 17:36] VITALS: BMI 24.4
[2023-10-25] MEDS: Polyethylene Glycol 3350 17 GM Packet PO SCH (20:56)
[2023-10-25] MEDS: Senokot S 8.6-50 MG TAB PO SCH (20:57)
[2023-10-25] MEDS: guaiFENesin ER 600 MG TAB PO SCH (20:57)
[2023-10-25] MEDS: Insulin Glargine 30 UNITS/0.3 ML VIAL SC SCH (20:58)
[2023-10-26] MEDS ORDERED: HumaLOG 300 UNITS/3 ML VIAL SC PRN (07:32)
[2023-10-26] MEDS: Insulin Glargine 30 UNITS/0.3 ML VIAL SC SCH (08:25)
[2023-10-26] MEDS ORDERED: Milk Of Magnesia 30 ML UDCUP PO SCH (12:15)
[2023-10-26] MEDS: Magnesium Citrate 300 ML BOT PO SCH (12:33)
[2023-10-26] MEDS: Fleet Saline Enema 133 ML BOT PR SCH (13:37)
[2023-10-26 20:42] VITALS: BP 104/49; TEMP 97.3
== END 2023-10-26 22:10 | DRG 312 ==
LOC: ERS 20:44 → ERHOLD 10-18 00:45 → 2NO 10-18 16:24 → OBSVTOIN 10-19 16:40 → T4-A 10-23 12:42
PROVIDERS: ADMIT Family Medicine; ATTEND Internal Medicine
DX: I95.2 Hypotension due to drugs (principal); E87.1 Hypo-osmolality and hyponatremia; I82.90 Acute embolism and thrombosis of unspecified vein; I25.10 Atherosclerotic heart disease of native coronary artery without angina pectoris; T42.8X5A Adverse effect of antiparkinsonism drugs and other central muscle-tone depressants, initial encounter; G20.A1 Parkinson's disease without dyskinesia, without mention of fluctuations; I95.9 Hypotension, unspecified; E11.40 Type 2 diabetes mellitus with diabetic neuropathy, unspecified; E11.22 Type 2 diabetes mellitus with diabetic chronic kidney disease; E11.649 Type 2 diabetes mellitus with hypoglycemia without coma; M54.50 Low back pain, unspecified; R33.8 Other retention of urine; G89.29 Other chronic pain; N40.1 Benign prostatic hyperplasia with lower urinary tract symptoms; E86.0 Dehydration; N32.89 Other specified disorders of bladder; I65.21 Occlusion and stenosis of right carotid artery; K59.01 Slow transit constipation; N18.2 Chronic kidney disease, stage 2 (mild); D63.1 Anemia in chronic kidney disease; R53.81 Other malaise; Z88.0 Allergy status to penicillin; Z91.040 Latex allergy status; Z79.82 Long term (current) use of aspirin; Z79.899 Other long term (current) drug therapy; Z86.711 Personal history of pulmonary embolism; Z86.718 Personal history of other venous thrombosis and embolism
CPT/HCPCS: 36415; 36416; 51701; 70450; 70551; 71260; 72125; 74177; 80048; 80053; 81001; 82306; 82607; 83036; 83605; 83690; 83735; 84100; 84443; 84484; 85025; 93005; 93306; 93880; 96360; 96361; G0378; J1815; J7050; J7999; Q9967